=== PATIENT | female | born 1985 | race Caucasian/White ===

== ENCOUNTER 2021-06-05 13:10 | Emergency (ER) | payer OTHER, SELFPAY ==
--- NOTE | 2021-06-05 13:54 | PC.NURSE ---
no answer when called for triage
== END 2021-06-06 03:23 | disposition left against medical advice (07) ==
LOC: ANHED 14:42
DX: Z53.21 Procedure and treatment not carried out due to patient leaving prior to being seen by health care provider (principal)
CPT/HCPCS: 99199